=== PATIENT | male | born 1935 | race Caucasian/White ===

== ENCOUNTER 2022-03-01 09:49 | Emergency (ER) | payer MEDICARE, OTHER ==
[2022-03-01] MEDS ORDERED: Lidocaine 1% PF 5 ML VIAL ONE (10:23)
[2022-03-01 10:32] LABS: #Eosinphils 0.1 thou/uL (0.0-0.7); #Lymphocytes 2.2 thou/uL (1.20-3.40); #Monocytes 1.3 thou/uL (0.11-0.59); #Neutrophils 6.4 thou/uL (1.40-6.50); %Basophils 0.2 % (0.0-1.0); %Eosinophils 0.7 % (0.0-10.0); %Lymphocytes 21.9 % (21.0-51.0); %Monocytes 13.1 % (0.0-10.0); Mean Corpuscular HGB CONC 32.6 g/dL (32.0-36.0); Mean Corpuscular Hemoglobin 30.9 pg (27.0-31.0); Mean Corpuscular Volume 94.7 fL (78.0-98.0); Platelet Count 187 thou/uL (130-400); RBC Distribution Width 12.4 % (11.5-14.5); Red Blood Cell (RBC) Count 4.52 mill/uL (4.70-6.10); White Blood Cell (WBC) Count 9.9 thou/uL (4.8-10.8)
[2022-03-01] MEDS ORDERED: Ketorolac Tromethamine 30 MG/ML VIAL ONE (10:43)
[2022-03-01] MEDS ORDERED: Morphine 4 MG/ML VIAL ONE (10:43)
[2022-03-01 10:55] LABS: ALT (SGPT) 7 U/L (8-55); AST (SGOT) 16 U/L (5-34); Albumin 3.8 g/dL (3.4-4.8); Alkaline Phosphatase 59 U/L (40-110); Anion Gap 16 mmol/L (10-20); BUN (Urea Nitrogen) 17 mg/dL (8.4-25.7); Calc. Creatinine Clearance 0 mL/min (70-130); Calcium 9.1 mg/dL (7.8-10.44); Carbon Dioxide 25 mmol/L (23-31); Chloride 101 mmol/L (98-107); Estimated GFR 72; Globulin 3.3 g/dL (2.4-3.5); Glucose 82 mg/dL (83-110); Potassium 4.3 mmol/L (3.5-5.1); Protein, Total 7.1 g/dL (5.8-8.1); Sodium 138 mmol/L (136-145)
[2022-03-01 14:26] LABS: RBC Count-Automated (BF) 2914 /cu.mm; WBC/Nucleated-Auto (BF) 334 /cu.mm
[2022-03-01 14:30] LABS: BF Color Yellow; Body Fluid Source Synovial Fluid; Clarity Hazy (Clear); Tube # EDTA
[2022-03-01 14:31] LABS: BF Segmented Neutrophils 41 %; Cell Count Non Hematic 56 %; Lymphocytes 3 %
== END 2022-03-01 15:48 | disposition home or self-care (01) ==
LOC: ERS 09:49
DX: M25.462 Effusion, left knee (principal)
CPT/HCPCS: 20611; 36415; 80053; 82945; 85025; 85060; 86140; 87040; 87070; 87205; 89051; 89060; 96374; 96375; J1885; J2270

== ENCOUNTER 2023-09-10 10:22 | Outpatient (CLI) | payer OTHER | END 2023-09-10 10:23 | disposition home or self-care (01) | LOC: BICRAD 10:22 | PROVIDERS: ATTEND Chiropractor | DX: M19.071 Primary osteoarthritis, right ankle and foot (principal) ==